=== PATIENT | male | born 1960 | race Caucasian/White ===

== ENCOUNTER → 2020-05-20 | Outpatient (CLI) | payer OTHER ==
[~2020-05-20] MED LIST: ALDACTONE25 MG PO; ALLEGRA-D 12 H1 EACH PO; BYSTOLIC 5 MG5 M1 PO; EDARBI40 MG PO; NORVASC10 MG PO; PREDNISONE 20 M20 MG PO; VENTOLIN HFA 1818 GM INH
== END ==
LOC: ULTRA 15:48
PROVIDERS: ATTEND Neuromusculoskeletal Medicine & OMM
DX: Z13.6 Encounter for screening for cardiovascular disorders (principal); I25.10 Atherosclerotic heart disease of native coronary artery without angina pectoris; E78.00 Pure hypercholesterolemia, unspecified

== ENCOUNTER → 2020-06-08 | Outpatient (CLI) | payer OTHER | LOC: SJCVCIMAG 08:14 | PROVIDERS: ATTEND Internal Medicine Cardiovascular Disease | DX: R06.09 Other forms of dyspnea (principal); R07.9 Chest pain, unspecified ==